=== PATIENT | male | born 1995 | race Caucasian/White ===

== ENCOUNTER 2021-12-09 19:32 | Emergency (ER) | payer BC ==
[~2021-12-09] VITALS: Ht 167.6 cm; Wt 83.0 kg
[2021-12-09 19:37] VITALS: BP 165/81
[2021-12-09] MEDS ORDERED: [UNRECOGNIZED DRUG - CODE] OP (23:07)
[2021-12-09 23:12] VITALS: BP 132/78
--- NOTE | 2021-12-09 23:12 | NUR ---
Patient discharged with v/s stable. Written and verbal after care instructions given and explained. Patient alert, oriented and verbalized understanding of instructions. Ambulatory with steady gait. All questions addressed prior to discharge. ID band removed. Patient advised to follow up with PMD. Rx of polycin eye ointment given. Patient educated on indication of medication including possible reaction and side effects. Opportunity to ask questions provided and answered.
== END 2021-12-09 23:12 | disposition home or self-care (01) ==
LOC: MED 19:32
DX: T15.02XA Foreign body in cornea, left eye, initial encounter (principal); X58.XXXA Exposure to other specified factors, initial encounter; Y92.89 Other specified places as the place of occurrence of the external cause; Y93.89 Activity, other specified; Y99.8 Other external cause status
CPT/HCPCS: 65220; 99284